=== PATIENT | female | born 2000 | race Hispanic/Latino ===

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

== ENCOUNTER 2022-04-09 11:33 | Emergency (ER) | payer MEDICAID ==
[~2022-04-09] VITALS: Ht 167.6 cm; Wt 70.8 kg
[2022-04-09 12:29] VITALS: BP 110/66
== END 2022-04-09 13:10 | disposition home or self-care (01) ==
LOC: EDH 11:33
DX: L05.01 Pilonidal cyst with abscess (principal); Z98.890 Other specified postprocedural states

== ENCOUNTER 2023-08-29 12:00 | Emergency (ER) | payer BC, MEDICAID ==
[~2023-08-29] VITALS: Ht 170.2 cm; Wt 63.5 kg
[2023-08-29 12:47] LABS: RAPID GROUP A STREP negative (NEGATIVE)
[2023-08-29 12:49] LABS: SARS-CoV-2, RNA, NAAT NEGATIVE SARS CoV-2 (NEGATIVE)
[2023-08-29 12:58] LABS: INFLUENZA TYPE A NEGATIVE FOR TYPE A (NEG)
[2023-08-29 12:59] LABS: INFLUENZA TYPE B NEGATIVE FOR TYPE B (NEG)
[2023-08-29] MEDS: ACETAMINOPHEN 325 MG TAB PO ONE (14:30)
[2023-08-29 15:19] VITALS: BP 113/73; PULSE 76; RESP 17; O2SAT 97
[2023-08-29] MEDS: PREDNISONE 20 MG TABLET PO ONE (15:46)
[2023-08-29] MEDS: KETOROLAC 60 MG VIAL (30MG/ML) IM ONE (15:46)
[2023-08-29] MEDS: CEFTRIAXONE 1G VIAL IM ONE (15:46)
[2023-08-29 15:47] VITALS: TEMP 98.9
[2023-08-29] MEDS ORDERED: AZIT200S47 PO (16:10)
[2023-08-29] MEDS ORDERED: PRED15SO75 PO (16:10)
== END 2023-08-29 16:13 | disposition home or self-care (01) ==
LOC: EDH 12:00
DX: J06.9 Acute upper respiratory infection, unspecified (principal); R91.8 Other nonspecific abnormal finding of lung field; Z98.890 Other specified postprocedural states; Z20.822 Contact with and (suspected) exposure to COVID-19
CPT/HCPCS: 99284; 71045; 87635; 87880; 87420; 87804 ×2; 96372 ×2; J0696; J1885